=== PATIENT | male | born 1995 | race Hispanic/Latino ===

== ENCOUNTER 2018-06-26 12:01 | Emergency (ER) | payer SELFPAY | END 2018-06-26 12:44 | disposition home or self-care (01) | LOC: EDH 12:01 | DX: S01.511A Laceration without foreign body of lip, initial encounter (principal); L08.9 Local infection of the skin and subcutaneous tissue, unspecified; W01.0XXA Fall on same level from slipping, tripping and stumbling without subsequent striking against object, initial encounter; Y93.89 Activity, other specified; Y92.89 Other specified places as the place of occurrence of the external cause; Y99.8 Other external cause status ==